=== PATIENT | female | born 1965 | race Caucasian/White ===

== ENCOUNTER 2021-11-07 16:57 | Emergency (ER) | payer OTHER ==
[2021-11-07] MEDS ORDERED: VALTREX1000 MG PO (17:58)
[2021-11-07] MEDS ORDERED: ERYTHROMYCIN OP1 GM OP (17:58)
[2021-11-07] MEDS ORDERED: NEURONTIN300 MG PO (18:04)
[2021-11-07] MEDS ORDERED: PERCOCET 5-3251 EACH PO (18:04)
== END 2021-11-07 18:30 | disposition home or self-care (01) ==
LOC: ER1 16:57
DX: B02.30 Zoster ocular disease, unspecified (principal); I10 Essential (primary) hypertension
CPT/HCPCS: 99283

== ENCOUNTER 2021-12-03 19:50 | Emergency (ER) | payer OTHER ==
[~2021-12-03 19:50] MED LIST: ERYTHROMYCIN OP1 GM OP; NEURONTIN300 MG PO; PERCOCET 5-3251 EACH PO; VALTREX1000 MG PO
[2021-12-03] MEDS ORDERED: TORADOL 10 MG T10 MG PO (22:12)
== END 2021-12-03 22:24 | disposition home or self-care (01) ==
LOC: ER1 19:50
DX: H57.12 Ocular pain, left eye (principal); I10 Essential (primary) hypertension; Z87.891 Personal history of nicotine dependence
CPT/HCPCS: 70487; 96374; 99283; J1885; Q9967

== ENCOUNTER → 2021-12-10 | Outpatient (CLI) | payer OTHER ==
[~2021-12-10] MED LIST changes: +TORADOL 10 MG T10 MG PO
== END ==
LOC: MAMO 08:00
DX: Z12.31 Encounter for screening mammogram for malignant neoplasm of breast (principal)
CPT/HCPCS: 77063; 77067